=== PATIENT | female | born 1980 | race Caucasian/White ===

== ENCOUNTER 2017-12-19 08:31 | Inpatient (IN) | payer OTHER ==
[~2017-12-19] VITALS: Ht 160 cm; Wt 68.5 kg
== END 2017-12-29 21:55 | disposition home or self-care (01) | DRG 349 ==
LOC: ER 08:31 → O/R 09:14 → SEC-K 09:14 → SURG 09:14 → O/R 13:43 → SURG 16:51
PROVIDERS: Colon & Rectal Surgery
PROC: 0DQQ0ZZ Repair Anus, Open Approach (ICD-10-PCS; 2017-12-19)
PROC: 0D5 Gastrointestinal System, Destruction (ICD-10-PCS; 2017-12-19)
PROC: 0U5M0ZZ Destruction of Vulva, Open Approach (ICD-10-PCS; 2017-12-19)
PROC: 0D9Q0ZZ Drainage of Anus, Open Approach (ICD-10-PCS; principal; 2017-12-19 16:00)
PROC: 4A033R1 Measurement of Arterial Saturation, Peripheral, Percutaneous Approach (ICD-10-PCS; 2017-12-21)
PROC: B54DZZZ Ultrasonography of Bilateral Lower Extremity Veins (ICD-10-PCS; 2017-12-22)
PROC: B246ZZZ Ultrasonography of Right and Left Heart (ICD-10-PCS; 2017-12-22)
PROC: 0UCG7ZZ Extirpation of Matter from Vagina, Via Natural or Artificial Opening (ICD-10-PCS; 2017-12-23)
PROC: BW3GYZZ Magnetic Resonance Imaging (MRI) of Pelvic Region using Other Contrast (ICD-10-PCS; 2017-12-25)
PROC: BW3GZZZ Magnetic Resonance Imaging (MRI) of Pelvic Region (ICD-10-PCS; 2017-12-25)
DX: K61.0 Anal abscess (principal); A63.0 Anogenital (venereal) warts; K60.3 Anal fistula; I95.89 Other hypotension; T19.2XXA Foreign body in vulva and vagina, initial encounter; B96.20 Unspecified Escherichia coli [E. coli] as the cause of diseases classified elsewhere; B95.2 Enterococcus as the cause of diseases classified elsewhere
CPT/HCPCS: 72197

== ENCOUNTER 2018-01-29 19:03 | Inpatient (IN) | payer OTHER ==
[~2018-01-29] VITALS: Ht 157.5 cm; Wt 62.6 kg
[2018-01-29] MEDS ORDERED: AMOX1TAB5 (19:44)
== END 2018-02-05 20:30 | disposition home or self-care (01) | DRG 349 ==
LOC: ER 19:03 → SURH 01-30 07:42 → SURG 01-30 07:42 → O/R 01-30 13:32 → SURH 01-30 15:24
PROVIDERS: Colon & Rectal Surgery
PROC: 0D9Q7ZX Drainage of Anus, Via Natural or Artificial Opening, Diagnostic (ICD-10-PCS; 2018-01-30)
PROC: 0DQQ7ZZ Repair Anus, Via Natural or Artificial Opening (ICD-10-PCS; principal; 2018-01-30 14:45)
DX: K61.0 Anal abscess (principal); B37.3 Candidiasis of vulva and vagina; B96.29 Other Escherichia coli [E. coli] as the cause of diseases classified elsewhere; B96.89 Other specified bacterial agents as the cause of diseases classified elsewhere; B96.1 Klebsiella pneumoniae [K. pneumoniae] as the cause of diseases classified elsewhere; B95.2 Enterococcus as the cause of diseases classified elsewhere; Z16.24 Resistance to multiple antibiotics; B95.1 Streptococcus, group B, as the cause of diseases classified elsewhere
CPT/HCPCS: 72197

== ENCOUNTER 2024-11-02 15:03 | Emergency (ER) | payer OTHER ==
[~2024-11-02] VITALS: Ht 162.6 cm; Wt 68.0 kg
[~2024-11-02 15:03] MED LIST: AMOX1TAB5
[2024-11-02] MEDS ORDERED: 0.9 % SODIUM CHLORIDE 1,000 ML IV STA (16:56)
[2024-11-02] MEDS ORDERED: KETOROLAC TROMETHAMINE 30 MG VIAL IV STA (16:57)
[2024-11-02] MEDS ORDERED: PIPERACILLIN/TAZOBACTAM SODIUM 3.375 GM VIAL IV STA (16:58)
[2024-11-02 17:43] LABS: BASO % 0.7 % (0.1-1.2); EOS # 0.16 (0.04-0.54); EOS % 1.9 % (0.7-7.0); LYMPH # 2.39 (1.18-3.74); LYMPH % 28.8 % (19.3-53.1); MEAN PLATELET VOLUME 10.00 fl (9.4-12.4); MONO # 0.70 (0.24-0.82); MONO % 8.4 % (4.7-12.5); NEUT # 4.97 (1.56-6.13); NEUT % 60.0 % (34.0-71.1); RED CELL DISTRIBUTION WIDTH 12.6 % (11.6-14.4)
[2024-11-02 18:04] LABS: INR 0.96
[2024-11-02 18:14] LABS: ALT/SGPT 26.0 U/L (12-78); AST/SGOT 18.0 U/L (15-37); BILIRUBIN TOTAL 0.9 mg/dL (0.3-1.2); BUN CREA RATIO 18.0 (7.0-25.0); CREATININE SERUM 0.96 mg/dL (0.55-1.02); GFR 62.57; GLOBULINA 4.3 G/DL (2.4-3.5); GLUCOSE FASTING 99.0 mg/dL (65-100); OSMOLALITY SERUM 281.0 MOSM/KG (275-295)
[2024-11-02 18:26] LABS: ERYTHROCYTE SEDIMENTATION RATE 50 mm/hr (0-20)
== END 2024-11-02 22:32 | disposition home or self-care (01) ==
LOC: ER 15:03
DX: K60.40 Rectal fistula, unspecified (principal); Z88.2 Allergy status to sulfonamides
CPT/HCPCS: 36415; 74177; Q9965